=== PATIENT | male | born 1965 | race Two or more races ===

== ENCOUNTER 2020-07-11 11:00 | Emergency (ER) | payer OTHER ==
[~2020-07-11] VITALS: Ht 175.3 cm; Wt 59.0 kg
[2020-07-11 11:15] VITALS: BP 173/115
== END 2020-07-11 17:02 | disposition left against medical advice (07) ==
LOC: ER 11:00
DX: M79.604 Pain in right leg (principal); K40.90 Unilateral inguinal hernia, without obstruction or gangrene, not specified as recurrent; I10 Essential (primary) hypertension; F17.210 Nicotine dependence, cigarettes, uncomplicated
CPT/HCPCS: 74176; 93971

== ENCOUNTER 2020-12-26 17:04 | Emergency (ER) | payer OTHER ==
[~2020-12-26] VITALS: Ht 175.3 cm; Wt 73.9 kg
[2020-12-26] MEDS ORDERED: cloNIDine HCL 0.1 MG TAB PO ONE (17:15)
[2020-12-26 19:45] VITALS: BP 147/93
== END 2020-12-26 20:01 | disposition home or self-care (01) ==
LOC: ER 17:04
DX: I10 Essential (primary) hypertension (principal); F17.210 Nicotine dependence, cigarettes, uncomplicated; Z86.73 Personal history of transient ischemic attack (TIA), and cerebral infarction without residual deficits; Z76.0 Encounter for issue of repeat prescription